=== PATIENT | female | born 1970 | race Caucasian/White ===

== ENCOUNTER 2023-04-12 11:57 | Day surgery (SDC) | payer OTHER ==
[~2023-04-12] VITALS: Ht 162.6 cm; Wt 71.3 kg
[~2023-04-12 11:57] MED LIST: AMLODIPINE BESYL5 MG PO; CAMRESE LO TAB1 EACH PO; PAROXETINE HCL20 MG PO; PERCOCET 7.5-31 EACH PO; SIMVASTATIN20 MG PO
[2023-04-12 12:09] VITALS: BP 144/85
--- NOTE | 2023-04-12 14:55 | NUR ---
04/12/23 1451 Mylene Gan 6558-PATIENT ARRIVED TO PACU ON 3L NC RR EVEN. PATIENT DROWSY OPENS EYES TO VERBAL STIMULI HOB ELEVATED LAYING LEFT LATERAL WASH CLOTH ON FOREAHEAD. DENIES PAIN OR NAUSEA. DOZES BACK TO SLEEP. ABDOMEN SOFT. IVF INFUSING
--- NOTE | 2023-04-12 15:20 | NUR ---
PT ARRIVES TO UNIT VIA STRETCHER FROM PACU. REPORT RECEIVED FROM YAMIL BOONE. PT REPORTS NO PAIN, NAUSEA, DIZZINESS, OR SOB. PT >90% VIA PULSE OX ON RA. PT IS DROWSY BUT RESPONDS TO VERBAL STIMULI, AT BEDSIDE. PT RESTING ON LFT SIDE W/PILLOW FOR SUPPORT. VS TAKEN. CALL LIGHT WITHIN REACH, NO FURTHER NEEDS AT THIS TIME.
[2023-04-12 15:44] VITALS: BP 112/72
--- NOTE | 2023-04-12 16:15 | NUR ---
IN PT ROOM FOR ASSESSMENT. PT STATES SHE WOULD LIKE TO GO HOME. PT STATES NO NAUSEA OR PAIN AT THIS TIME AND IS TOLERATING ICE WATER WITHOUT DIFFICULTY. PT REMAINS ON RA W/O2 SATS >90% VIA PULSE OX. SMALL AMOUNT OF CLEAR DRAINAGE FROM ANUS ON BEDDING AT THIS TIME. PT GETTING DRESSED AT THIS TIME, CALL LIGHT WITHIN REACH, IN ROOM.
--- NOTE | 2023-04-12 16:20 | NUR ---
DISCHARGE EDUCATION PROVIDED. PT AND STATE VERBAL UNDERSTANDING WITH NO FURTHER QUESTIONS AT THIS TIME. THIS RN ESCORTS PT OFF OF UNIT VIA WC TO PASSENGER SIDE OF HUSBANDS VEHICLE FOR STANDBY ASSIST. ALL BELONGINGS IN PT POSSESSION AT THIS TIME. PT AND STATE NO FURTHER NEEDS.
--- NOTE | 2023-04-14 18:00 | OR ---
[facility] [address], [place] [address] Signed DATE OF OPERATION: 04/12/2023 SURGEON: Phuong Sales MD PREOPERATIVE DIAGNOSES: 1. Family history of colon cancer (sister). 2. History of hyperplastic polyp 2014. POSTOPERATIVE DIAGNOSIS: Polyps x4. PROCEDURE: Total colonoscopy to cecum with cold snare polypectomy x1 and cold morcellation polypectomy x3. ANESTHESIA: Intravenous sedation; fentanyl 150 mcg and Versed 9 mg. INDICATION: This 52-year-old white woman is a patient of TAYLOR Guevara. She underwent colonoscopy by me in 2014 at which time, she had a hyperplastic polyp. She notably does have family history of colon cancer in a sister who at a young age from colon cancer. She is currently asymptomatic and is here for surveillance colonoscopy. She understands the risk of bleeding, infection, and perforation. FINDINGS: The prep was excellent. Complete colonoscopy was undertaken to the cecum without question. She had four polyps, one in the left transverse colon and three in the sigmoid and rectal area. All were excised completely. PROCEDURE IN DETAIL: The patient was brought to the endoscopy suite and placed in lateral decubitus position, given intravenous sedation to the point of slurred speech and nystagmus with full cardiopulmonary monitoring. Digital rectal examination was normal. An Olympus video colonoscope was passed in the rectum and manipulated into the colon. Two small polyps were noted in the sigmoid and these were passed off at this time allowing for passage of the scope ultimately to the cecum. The colon was rather redundant and abdominal wall stabilization was required at one point, ultimately the cecum was completely intubated. Ileocecal valve and appendiceal orifice were normal. Electronically Signed By: PHUONG SALES MD 04/14/23 [facility] PATIENT NAME: JUAN MISHRA OPERATIVE REPORT DATE OF : 68 REPORT #: [id number] PHYSICIAN: PHUONG SALES MD PCP: JAYSHREE MILLS PA-C REPORT IS CONFIDENTIAL AND NOT TO BE RELEASED WITHOUT AUTHORIZATION [facility] [address], [place] [address] Signed Irrigation was undertaken. The scope was then withdrawn and examination throughout showed no sign of abnormality into the left transverse colon where a small polyp was noted, this was excised with cold morcellation technique. Further withdrawal showed no abnormality into the sigmoid where two small polyps were noted. They were excised with cold morcellation technique as well. Lastly in the proximal rectum, there was a slightly larger sessile polyp, this was excised with cold snare technique. The scope was withdrawn and retroflexed view undertaken showed no other abnormality. At the conclusion, the patient was taken to the recovery room in good condition having suffered no complication. CONCLUDING DIAGNOSIS: Polyps x4. PLAN: Recommend repeat colonoscopy in three years, sooner if symptoms should occur. She will return to the ongoing care of TAYLOR Guevara. MD SARAH Godwin/EPI /[id number] cc: TAYLOR Guevara. Copies: ~ Electronically Signed By: PHUONG SALES MD 04/14/23 1800 PATIENT NAME: JUAN MISHRA OPERATIVE REPORT DATE OF : 68 REPORT #: [id number] PHYSICIAN: PHUONG SALES MD PCP: JAYSHREE MILLS PA-C REPORT IS CONFIDENTIAL AND NOT TO BE RELEASED WITHOUT AUTHORIZATION
--- NOTE | 2023-04-15 06:07 | PATH ---
[facility] [address], [place] [address] Signed SPECIMEN(S): A TRANSVERSE COLON POLYP SPECIMEN(S): B SIGMOID/RECTUM POLYP SPECIMEN(S): C RECTAL POLYP SPECIMEN SOURCE: A. TRANSVERSE COLON POLYP B. SIGMOID/RECTUM POLYP C. RECTAL POLYP CLINICAL HISTORY: Hx of polyps. FINAL PATHOLOGIC DIAGNOSIS: A. Transverse colon polyp: - Tubular adenoma (two fragments). B. Sigmoid / rectum polyp: - Tubular adenoma (one fragment). - Hyperplastic polyp (one fragment). C. Rectal polyp: - Hyperplastic polyps (multiple fragments). JVR:[facility]:C2NR MICROSCOPIC EXAMINATION: Histologic sections of all submitted blocks are examined by light microscopy. These findings, together with the gross examination, support the pathologic diagnosis. GROSS DESCRIPTION: A. The specimen, labeled and designated "Korey, transverse colon polyp," is received in formalin and consists of three manzano soft tissue fragments, ranging from 0.2-0.3 cm. Entirely submitted in (A1). B. The specimen, labeled and designated "Mishra, sigmoid/rectum polyp," is received in formalin and consists of five manzano soft tissue fragments, ranging from 0.1-0.3 cm. Entirely submitted in (B1). C. The specimen, labeled and designated "Mishra, rectal polyp," is received in formalin and consists of five manzano soft tissue fragments, ranging from less than 0.1-0.3 cm. Entirely submitted in (C1). KA (under the direct supervision of a pathologist) The Gross Description was prepared using a voice recognition system. The report was reviewed for accuracy; however, sound-alike word errors, addition and/or deletions may occur. If there is any PATIENT NAME: JUAN MISHRA PATHOLOGY DATE OF : 68 REPORT #: [id number] PHYSICIAN: RAFIQ PATHOLOGY PCP: JAYSHREE MILLS PA-C REPORT IS CONFIDENTIAL AND NOT TO BE RELEASED WITHOUT AUTHORIZATION [facility] [address] [facility] [place] [address] Signed question about this report, please contact Client Services. PERFORMING LABORATORY: Technical component was performed by [facility], [address] [place] [address] (CLIA# [id number]). Professional interpretation was performed by [facility], [address] [place] [phone] (CLIA#: [id number]). Diagnostician: Shad Shaver MD Pathologist Electronically Signed 04/14/2023 Copies: ~ PATIENT NAME: JUAN MISHRA PATHOLOGY DATE OF : 68 REPORT #: [id number] PHYSICIAN: RAFIQ DE LA CRUZ PCP: JAYSHREE MILLS PA-C REPORT IS CONFIDENTIAL AND NOT TO BE RELEASED WITHOUT AUTHORIZATION
== END 2023-04-12 16:20 | disposition home or self-care (01) ==
LOC: OPS 11:57 → DS 12:03 → OPS 12:45
PROVIDERS: ATTEND Surgery
PROC: 0DBE8ZZ Excision of Large Intestine, Via Natural or Artificial Opening Endoscopic (ICD-10-PCS; 2023-04-12)
PROC: 0DBL8ZZ Excision of Transverse Colon, Via Natural or Artificial Opening Endoscopic (ICD-10-PCS; 2023-04-12)
PROC: 0DBN8ZZ Excision of Sigmoid Colon, Via Natural or Artificial Opening Endoscopic (ICD-10-PCS; principal; 2023-04-12 12:45)
DX: Z12.11 Encounter for screening for malignant neoplasm of colon (principal); D12.3 Benign neoplasm of transverse colon; D12.5 Benign neoplasm of sigmoid colon; K62.1 Rectal polyp; I10 Essential (primary) hypertension; E78.5 Hyperlipidemia, unspecified; Z86.010 Personal history of colon polyps; Z80.0 Family history of malignant neoplasm of digestive organs
CPT/HCPCS: 99153; G0500; J2060; J2250; J3010